=== PATIENT | female | born 1990 | race Caucasian/White ===

== ENCOUNTER 2018-08-20 11:52 | Emergency (ER) | payer OTHER ==
[~2018-08-20] VITALS: Ht 157.5 cm; Wt 61.2 kg
[2018-08-20 11:59] VITALS: BP 113/73
--- NOTE | 2018-08-20 12:09 | NUR ---
PATIENT PRESENTS TO ED WITH pt c/o sudden onset burning pain to upper back/ shoulders/extremities adds if touched or slightest movements exacerbate pain denies recent injury/rash/fever . DENIES N/V/D; SKIN IS PINK/WARM/DRY; AAOX4 WITH EVEN AND STEADY GAIT; LUNGS CLEAR BL; HR EVEN AND REGULAR; PT DENIES ANY FEVER, CP, SOB, OR COUGH AT THIS TIME; PATIENT STATES PAIN OF 6/10 AT THIS TIME; VSS; PATIENT POSITIONED FOR COMFORT; HOB ELEVATED; BEDRAILS UP X2; BED DOWN. ER MD MADE AWARE OF PT STATUS.
--- NOTE | 2018-08-20 12:12 | NUR ---
also denies recent use of different medications/ soaps/lotions
[2018-08-20 13:45] VITALS: BP 126/68
== END 2018-08-20 13:55 | disposition home or self-care (01) ==
LOC: MED 11:52
DX: M54.9 Dorsalgia, unspecified (principal); R11.0 Nausea; F43.9 Reaction to severe stress, unspecified; Z90.49 Acquired absence of other specified parts of digestive tract
CPT/HCPCS: 81002; 81025; 99282

== ENCOUNTER 2019-07-03 07:53 | Emergency (ER) | payer OTHER ==
[~2019-07-03] VITALS: Ht 157.5 cm; Wt 63.0 kg
[2019-07-03 07:59] VITALS: BP 110/51
[2019-07-03 10:11] VITALS: BP 110/51
== END 2019-07-03 10:11 | disposition home or self-care (01) ==
LOC: MED 07:53
DX: R05 Cough (principal); R09.89 Other specified symptoms and signs involving the circulatory and respiratory systems
CPT/HCPCS: 71045; 81002; 81025; 99283

== ENCOUNTER 2019-09-17 10:07 | Emergency (ER) | payer OTHER ==
[~2019-09-17] VITALS: Ht 157.5 cm; Wt 63.5 kg
[2019-09-17 10:11] VITALS: BP 113/51
--- NOTE | 2019-09-17 10:17 | NUR ---
PATIENT AMBULATED TO BED 7.
--- NOTE | 2019-09-17 10:26 | NUR ---
28 Y/O FEMALE FROM HOME C/O LT SIDED RIB CAGE PAIN X 1 WK S/P FALL. PT STATES SHE SLIPPED WHILE AT THE POOL, DENIES LOC. STATES SHE FELT A "POP" IN HER RIB CAGE THIS MORNING UPON WAKING UP. 6/10 SHARP PAIN, WORSE UPON INHALATION. NO BRUISING/DEFORMITIES NOTED. RR EVEN AND UNLABORED. HAS NOT TAKEN MEDICATION FOR PAIN. VSS MEDHX: DENIES ALLERGIES: JUAN
[2019-09-17] MEDS ORDERED: KETOROLAC 15 MG/ML VIAL IM ONE (10:40)
--- NOTE | 2019-09-17 10:51 | NUR ---
X-Ray at bedside.
--- NOTE | 2019-09-17 10:57 | NUR ---
LAB AT BEDSIDE
[2019-09-17 11:13] LABS: BASOPHILS % (AUTO) 0.4 % (0.0-2.0); EOSINOPHILS # (AUTO) 0.1 K/uL (0-0.4); EOSINOPHILS % (AUTO) 1.7 % (0.0-4.0); HEMATOCRIT 39.7 % (36-48); HEMOGLOBIN 13.1 g/dL (12.0-16.0); LYMPHOCYTES # (AUTO) 1.6 K/uL (2.5-16.5); LYMPHOCYTES % (AUTO) 37.8 % (20.5-51.1); MEAN CORPUSCULAR HEMOGLOBIN 32 pg (27-31); MEAN CORPUSCULAR HGB CONC 33 g/dL (33-37); MONOCYTES # (AUTO) 0.3 K/uL (0.8-1.0); NEUTROPHILS # (AUTO) 2.3 K/uL (1.8-7.7); NEUTROPHILS % (AUTO) 53.1 % (42.2-75.2); PLATELET COUNT (AUTO) 192 K/uL (140-450); RED BLOOD CELL COUNT(AUTO) 4.09 MIL/uL (4.20-5.40); RED CELL DISTRIBUTION WIDTH 13.6 % (11.6-13.7); WHITE BLOOD COUNT (AUTO) 4.3 K/uL (4.8-10.8)
[2019-09-17 11:24] LABS: APPEARANCE,URINE HAZY (CLEAR); BILIRUBIN,URINE NEGATIVE (NEGATIVE); BLOOD, URINE NEGATIVE (NEGATIVE); COLOR,URINE YELLOW (YELLOW); UGLUCOSE NEGATIVE (NEGATIVE)
--- NOTE | 2019-09-17 11:24 | NUR ---
STATES DECREASE IN PAIN AFTER TORADOL IM. 05/20 AT THIS TIME. VSS
[2019-09-17 11:25] LABS: LEUKOCYTE ESTERASE ,URINE NEGATIVE (NEGATIVE); NITRITE, URINE NEGATIVE (NEGATIVE)
[2019-09-17 11:30] LABS: ANION GAP 11.2 (8-16); CARBON DIOXIDE 30.2 mmol/L (21-32); CREATININE 0.9 mg/dL (0.6-1.3); POTASSIUM 4.4 mmol/L (3.5-5.1)
[2019-09-17 11:35] LABS: ALBUMIN 3.7 g/dL (3.4-5.0); TOTAL BILIRUBIN 0.2 mg/dL (0.0-1.0)
[2019-09-17 12:40] VITALS: BP 106/61
== END 2019-09-17 12:40 | disposition home or self-care (01) ==
LOC: MED 10:07
DX: R07.89 Other chest pain (principal)
CPT/HCPCS: 36415; 71045; 80053; 81003; 81025; 83690; 85025; 96372; 99284; J1885; Q0092

== ENCOUNTER 2021-05-02 10:45 | Emergency (ER) | payer OTHER ==
--- NOTE | 2021-05-02 11:16 | NUR ---
PER DR. RAMIREZ ATTEMPTED TO CALL PATIENT AND NO ANSWER AT THIS TIME
--- NOTE | 2021-05-02 11:38 | NUR ---
ATTEMPTED TO CALL PATIENT AND NO ANSWER AT THIS TIME - SECOND TRY
--- NOTE | 2021-05-02 12:00 | NUR ---
ATTEMPTED TO CALL PATIENT AND NO ANSWER AT THIS TIME - THIRD TRY MD MADE AWARE.
== END 2021-05-02 10:49 | disposition left against medical advice (07) ==
LOC: MED 10:45
DX: Z53.21 Procedure and treatment not carried out due to patient leaving prior to being seen by health care provider (principal)

== ENCOUNTER 2023-08-23 20:15 | Emergency (ER) | payer OTHER ==
[~2023-08-23] VITALS: Ht 157.5 cm; Wt 65.8 kg
[2023-08-23 20:51] VITALS: BP 94/92; PULSE 76; RESP 16; TEMP 97.4; O2SAT 100
[2023-08-23 21:26] VITALS: O2SAT 98
[2023-08-23 21:28] VITALS: BP 112/56; PULSE 69; RESP 15; TEMP 97.7
[2023-08-23 21:37] LABS: BASOPHILS % (AUTO) 0.4 % (0.0-2.0); EOSINOPHILS % (AUTO) 0.7 % (0.0-4.0); HEMATOCRIT 37.8 % (36-48); HEMOGLOBIN 12.8 g/dL (12.0-16.0); LYMPHOCYTES # (AUTO) 1.7 K/uL (2.5-16.5); LYMPHOCYTES % (AUTO) 26.6 % (20.5-51.1); MEAN CORPUSCULAR HEMOGLOBIN 33 pg (27-31); MEAN CORPUSCULAR HGB CONC 34 g/dL (33-37); MEAN CORPUSCULAR VOLUME 96.1 fL (80-94); MONOCYTES # (AUTO) 0.5 K/uL (0.8-1.0); MONOCYTES % (AUTO) 7.9 % (1.7-9.3); NEUTROPHILS # (AUTO) 4.1 K/uL (1.8-7.7); NEUTROPHILS % (AUTO) 64.4 % (42.2-75.2); PLATELET COUNT (AUTO) 219 K/uL (140-450); RED BLOOD CELL COUNT(AUTO) 3.93 MIL/uL (4.20-5.40); RED CELL DISTRIBUTION WIDTH 13.2 % (11.6-13.7); WHITE BLOOD COUNT (AUTO) 6.4 K/uL (4.8-10.8)
[2023-08-23 21:37] LABS: APPEARANCE,URINE CLEAR (CLEAR); BILIRUBIN,URINE NEGATIVE (NEGATIVE); BLOOD, URINE 2+ (NEGATIVE); COLOR,URINE YELLOW (YELLOW); LEUKOCYTE ESTERASE ,URINE 1+ (NEGATIVE); NITRITE, URINE POSITIVE (NEGATIVE); PROTEIN,URINE NEGATIVE (NEGATIVE); UGLUCOSE NEGATIVE (NEGATIVE); UROBILINOGEN,URINE 0.2 EU/dL (0.2 - 1)
[2023-08-23 21:45] VITALS: O2SAT 98
[2023-08-23 21:49] LABS: WBC,URINE 16-25 (MOD) /HPF (0-5)
[2023-08-23 21:51] LABS: BACTERIA,URINE >30 (MANY) /HPF (None Seen); MUCUS,URINE 2+ /LPF (None Seen); SQUAMOUS EPITHELIAL CELL,UR 4-10 (MOD) /LPF (0-3 (FEW))
[2023-08-23 21:55] LABS: CALCIUM 8.4 mg/dL (8.5-10.1); CARBON DIOXIDE 29.9 mmol/L (21-32); CREATININE 0.7 mg/dL (0.6-1.3); POTASSIUM 3.9 mmol/L (3.5-5.1)
[2023-08-23 22:04] LABS: ALBUMIN 3.6 g/dL (3.4-5.0); BILIRUBIN,DIRECT 0.1 mg/dL (0.0-0.3); TOTAL BILIRUBIN 0.3 mg/dL (0.0-1.0); TOTAL PROTEIN, SERUM 6.7 g/dL (6.4-8.2)
[2023-08-23] MEDS ORDERED: PHEN-1877 PO (22:35)
[2023-08-23] MEDS ORDERED: CIPR500T4 PO (22:35)
== END 2023-08-23 22:38 | disposition home or self-care (01) ==
LOC: MED 20:15
DX: N39.0 Urinary tract infection, site not specified (principal); Z79.899 Other long term (current) drug therapy
CPT/HCPCS: 36415; 80048; 80076; 81001; 81025; 83690; 85025; 87086; 99283

== ENCOUNTER 2023-10-25 23:50 | Emergency (ER) | payer OTHER ==
[~2023-10-25] VITALS: Ht 157.5 cm; Wt 65.8 kg
[~2023-10-25 23:50] MED LIST: CIPR500T4 PO; PHEN-1877 PO; SULF-59 PO
[2023-10-26 00:05] VITALS: BP 99/46; PULSE 72; RESP 16; TEMP 97.4; O2SAT 99
[2023-10-26] MEDS: LIDOCAINE/EPI 1% 1:100000 20 ML VIAL INJ ONE (01:05)
[2023-10-26] MEDS: KETOROLAC 30 MG/ML VIAL IM ONE (02:11)
== END 2023-10-26 02:39 | disposition home or self-care (01) ==
LOC: MED 23:50
DX: S61.412A Laceration without foreign body of left hand, initial encounter (principal); Y99.8 Other external cause status; Z79.2 Long term (current) use of antibiotics; W26.0XXA Contact with knife, initial encounter; Y93.89 Activity, other specified; Y92.89 Other specified places as the place of occurrence of the external cause; Z79.899 Other long term (current) drug therapy
CPT/HCPCS: 12001; 73130; 81025; 96372; 99283; J1885; J2001